=== PATIENT | male | born 1985 | race Caucasian/White ===

== ENCOUNTER 2019-07-07 17:41 | Emergency (ER) | payer OTHER ==
[2014-04-19 20:16] VITALS: BP 132/68
--- NOTE | 2019-07-07 17:49 | ED Physician Documentation ---
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 Patient states he did not lose consciousness. Last tetanus was 2014. Lacaration measure 5 cm along top of head. Onset: minutes (30) Timing: still present Severity: moderate - ROS CONST: no problems EYES/ENT: none CVS/RESP: none GI/: none MS/SKIN/LYMPH: none NEURO/PSYCH: denies: headache - PAST HX Past History: none Other History: none Surgeries/Procedures: none Immunizations: tetanus Allergies/Adverse Reactions: Allergies Allergy/AdvReac Type Severity Reaction Status Date / Time "phines" and "eines" Allergy Uncoded 07/07/19 17:55 Home Medications: Ambulatory Orders Medication Instructions Recorded NK 04/19/14 - SOCIAL HX Smoking History: non-smoker Alcohol Use: none Drug Use: none - FAMILY HX Family History: No - VITAL SIGNS Vital Signs: Vital Signs Temp Pulse Resp BP Pulse Ox 83 17 132/68 98 07/07/19 17:45 07/07/19 17:45 04/19/14 20:15 07/07/19 17:45 - REVIEWED ASSESSMENTS Nursing Assessment Reviewed: Yes Vitals Reviewed: Yes Procedures Wound Location: head Wound Length: 5 cm Wound's Depth, Shape: linear Wound Explored: clean Betadine Prep?: Yes Volume of Anesthetic: 0 Wound Debrided: moderate Wound Repaired With: eliezer Number of Sutures: 3 General Adult Physical Exam - PHYSICAL EXAM GENERAL APPEARANCE: no distress EENT: eye inspection normal, MILO NECK: normal inspection, supple RESPIRATORY: no resp distress, breath sounds normal CVS: reg rate & rhythm, heart sounds normal ABDOMEN: soft, normal bowel sounds BACK: normal inspection SKIN: warm/dry EXTREMITIES: non-tender, no evidence of injury NEURO: oriented X3, mood/affect nml Discharge Clincal Impression: Scalp laceration Qualifiers: Encounter type: initial encounter Qualified Code(s): S01.01XA - Laceration without foreign body of scalp, initial encounter Referrals: Primary Doctor,No [Primary Care Provider] - 2 Days Additional Instructions: 1. Wash laceration twice daily with warm soapy water, pat dry, apply triple antibiotic ointment 2. Tylenol and/or Ibuprofen as needed for pain 3. Follow up with PCP in 7-10 days for staple removal 4. Return to ER for new or worsening symptoms Condition: Stable Disposition: 01 HOME, SELF-CARE Decision to Admit: NO Date of Decison to Admit: 07/07/19 Decision Time: 17:57
== END 2019-07-07 18:00 | disposition home or self-care (01) ==
LOC: ED 17:41
DX: S01.01XA Laceration without foreign body of scalp, initial encounter (principal); V58.9XXA Unspecified occupant of pick-up truck or van injured in noncollision transport accident in traffic accident, initial encounter
CPT/HCPCS: 12002; 99282